=== PATIENT | male | born 1960 | race Caucasian/White ===

== ENCOUNTER 2017-06-12 15:34 | Emergency (ER) | payer OTHER ==
[2017-06-12] MEDS ORDERED: IPRATROPIUM/ALBUTEROL SULFATE 3 ML NEB NEB ONE (16:00)
[2017-06-12] MEDS ORDERED: NORMAL SALINE 10 ML SYRINGE FLUSH IVP PRN (16:05)
[2017-06-12 16:10] VITALS: RESP 16; TEMP 97.2
[2017-06-12 16:10] LABS: BASOPHILS # (AUTO) 0.04 10*3/UL; BASOPHILS % (AUTO) 0.7 % (0-1); EOSINOPHILS # (AUTO) 0.04 10*3/UL; EOSINOPHILS % (AUTO) 0.7 % (0-8); HEMOGLOBIN 17.2 g/dL (14.0-18.0); LYMPHOCYTES # (AUTO) 0.76 10*3/uL; MEAN CORPUSCULAR HEMOGLOBIN 35.8 PG (27-31); MEAN CORPUSCULAR HGB CONC 36.6 g/dL (33-37); MEAN CORPUSCULAR VOLUME 97.7 FL (80-90); MEAN PLATELET VOLUME 9.1 FL (7.4-12.2); MONOCYTES # (AUTO) 0.91 10*3/UL (0.3-0.8); NEUTROPHILS % (AUTO) 70.8 % (50-80); RED BLOOD COUNT 4.81 10^6/uL (4.70-6.10)
[2017-06-12 16:12] LABS: PLATELET MORPHOLOGY COMMENT NORMAL MORPHOLOGY (NORM); RBC MORPHOLOGY COMMENT NORMAL MORPHOLOGY (NORM); WBC MORPHOLOGY COMMENT NORMAL MORPHOLOGY (NORM)
[2017-06-12 16:20] LABS: BLOOD UREA NITROGEN 8 mg/dL (7-22); BUN/CREATININE RATIO 11.42 (6-20); CALCIUM 8.7 mg/dL (8.7-10.7); EST GLOMERULAR FILTRATION > 60 (>60 ml/min/1.73m(2)); SERUM ALBUMIN 3.8 g/dL (3.5-4.8)
--- NOTE | 2017-06-12 16:25 | EKG ---
[address] [address] Measurements Intervals [place] Rate: 82 P: 76 [place]: 171 QRS: 66 QRSD: 95 T: 46 QT: 397 QTc: 436 Interpretive Statements SINUS RHYTHM VOLTAGE CRITERIA FOR LVH No previous ECG available for comparison Electronically Signed On 06-13-17 08:48:38 MDT by Jimmie Moreno [email or web address]
--- NOTE | 2017-06-12 16:52 | DI ---
PA /LATERAL CHEST X-RAY, 06/12/2017 3:57 PM : Clinical History: Hypoxia. Wheezing. Previous Exam: None at this facility. There is no acute soft tissue or bony abnormality. Respiratory motion artifacts are present on both v iews. Heart size is normal. Lungs are clear. Mediastinal structures are normal. There are no pulmonar y nodules. Reading: Normal chest x-ray.
[2017-06-12] MEDS ORDERED: POTASSIUM CHLORIDE 20 MEQ TAB PO ONE (17:22)
--- NOTE | 2017-06-12 17:24 | PDOC ---
General Adult HPI - General Chief Complaint: General Medical Stated Complaint: NOT FEELING WELL Date Seen by Provider: 06/12/17 Time Seen by Provider: 15:50 - History of Present Illness Have you received a tetanus shot in the past 10 years?: Unknown - Patient Home Medications Home Medications: Home Medications Lisinopril/Hydrochlorothiazide [Lisinopril-Hctz 20-25 mg Tab] 1 tab PO DAILY Oxycodone HCl 20 mg PO Q4HR 06/12/17 Oxycodone HCl [Oxycontin] 60 mg PO BID 06/12/17 Potassium Chloride [K-Dur] 20 meq PO DAILY 06/12/17 - Patient Allergies Allergies/Adverse Reactions: Allergies Allergy/AdvReac Type Severity Reaction Status Date / Time No Known Allergies Allergy Unverified 06/12/17 15:45 Past Medical History - heen HEENT History: Denies History Cardiovascular History: Hypertension Respiratory History: Denies History Gastrointestinal History: Denies History Genitourinary History: Denies History Endocrine History: Denies History Musculoskeletal History: Arthritis, Joint Pain, Physical Limitation, Other ( please comment) Prosthesis or Implant: No Additional Musculoskeletal History: Chronic Lumbar Issues/Pain Neurological History: Denies History Blood Disorders: Denies History Psychiatric History: Denies History History of Sexually Transmitted Diseases: No Male Reproductive History: Denies History Cancer History: Denies History In Past Year Been Physically Harmed or Verbally Threatened: No History of MDRO: No History of Other Communicable Diseases: No Tobacco Use: Never Smoker Alcohol Use: Occasionally Type of alcohol normally used: Beer Substance Use Type: None Previous Surgical History: Yes Type / Date of Surgery: R HIP REPLACEMENT NOVEMBER 2016 Anesthesia Reactions: No Malignant Hyperthermia: No Family History of Malignant Hyperthermia: No Significant Family History: No pertinent family hx General Adult Progress - Results Reviewed by me Xrays/CTs/US Reviewed by me: Yes Radiology Findings: normal cxr Lab Results Reviewed: Yes Lab Results:: Laboratory Results 06/12/17 Range/Units 16:07 WBC 6.07 (4.8-10.8) 10^3/uL RBC 4.81 (4.70-6.10) 10^6/uL Hgb 17.2 (14.0-18.0) g/dL Hct 47.0 (42.0-52.0) % MCV 97.7 H (80-90) FL MCH 35.8 H (27-31) PG MCHC 36.6 (33-37) g/dL RDW Std Deviation 55.2 H (39-50) fL RDW Coeff of Jaqueline 15.6 H (11.5-14.5) % Plt Count 168 (140-350) 10*3/uL MPV 9.1 (7.4-12.2) FL Immature Gran % (Auto) 0.3 (0-5) % Neut % (Auto) 70.8 (50-80) % Lymph % (Auto) 12.5 (10-50) % Rogers % (Auto) 15.0 (5-15) % Eos % (Auto) 0.7 (0-8) % Baso % (Auto) 0.7 (0-1) % Immature Gran # (Auto) 0.02 10*3/UL Neut # (Auto) 4.30 10*3/UL Lymph # (Auto) 0.76 10*3/uL Rogers # (Auto) 0.91 H (0.3-0.8) 10*3/UL Eos # (Auto) 0.04 10*3/UL Baso # (Auto) 0.04 10*3/UL WBC Morphology Comment Normal morphology (NORM) Plt Morphology Comment Normal morphology (NORM) RBC Morph Comment Normal morphology (NORM) D-Dimer 0.43 (0.00-0.59) mg/L Sodium 135 (135-145) meq/L Potassium 2.9 L (3.8-5.2) meq/L Chloride 94 L (98-112) meq/L Carbon Dioxide 33 (23-33) meq/L Anion Gap 8 (5-20) BUN 8 (7-22) mg/dL Creatinine 0.7 (0.70-1.50) mg/dL Estimated GFR > 60 (>60 ml/min/1.73m(2)) BUN/Creatinine Ratio 11.42 (6-20) Glucose 107 (78-110) mg/dL Calculated Osmolality 277.0 (267-292) mOsm/kg Calcium 8.7 (8.7-10.7) mg/dL Total Bilirubin 0.9 (0.3-1.2) mg/dL AST 50 (21-57) IU/L ALT 57 (21-72) IU/L Alkaline Phosphatase 156 H (38-126) IU/L Troponin I 0.030 (< 0.040) ng/mL NT-Pro-B Natriuret Pep 210 H (0-125) PG/ML Total Protein 6.5 (6.1-8.0) g/dL Albumin 3.8 (3.5-4.8) g/dL Globulin 2.7 (2.50-4.10) g/dL Albumin/Globulin Ratio 1.40 (1.3-2.0) mg/g EKG Interpretation:: POSITIVE: Other (no ischemic changes) - Patient's Progress MDM / ED Course: Patient is strange episode where he started feeling very poorly and he couldn't really describe exactly what was going on. He denied any specific chest pain they had a little bit of epigastric discomfort that he classified as reflux. Ultimately his pressures outside of the hospital were high so this in combination with his other symptoms is brought to the emergency department for evaluation. In the ER he is been feeling better and better he was weaned off of oxygen and is satting greater than 91% on room air. He has had mostly benign labs with the exception of a potassium at 2.9 and was given 20 mEq of oral potassium. He normally takes potassium orally as an outpatient but hasn't taken it over last couple days. He has had no concerning rhythm during his time here in the emergency department he states that he feels back to his baseline. D-dimer is negative chest x-ray is normal. I've encouraged him to return with any increase in symptoms or any other problems. And follow-up with his primary care provider back home as soon as he can. Patient Care Time - Estimated PCT Patient Care Time (In Minutes): 40 Vital Signs - Recent Vital Signs Vital Signs: Vital Signs (Last 8 hours) Temp Pulse Pulse Resp BP BP Pulse Ox 06/12/17 15:48 97.2 F 90 16 162/93 89 06/12/17 15:45 97.2 F 90 16 162/93 94 - VS Reviewed Vital Signs Reviewed: Yes Discharge Clinical Impression: Hypokalemia, Cough, Hypoxia Discharge Disposition: Discharged to Home Patient Instructions Given at Discharge: Hypokalemia (ED), Hypoxia (ED) Follow Up With: NONE,NONE [Primary Care Provider] -
[2017-06-12 17:35] LABS: BILIRUBIN,URINE MODERATE (NEG); CLARITY,URINE CLEAR (CLEAR); COLOR,URINE YELLOW; GLUCOSE, URINE (UA) NEGATIVE (NEG); NITRATE,URINE NEGATIVE (NEG); OCCULT BLOOD,URINE Trace-intact (NEG); PROTEIN,URINE >300 mg/dl (NEG)
[2017-06-12 17:52] LABS: URINE SAMPLE TYPE VOIDED SPECIMEN; URINE SPECIFIC GRAVITY - MAN 1.027; WBC,URINE 0-2
== END 2017-06-12 18:31 | disposition home or self-care (01) ==
LOC: ER 15:34
DX: E87.6 Hypokalemia (principal); R05 Cough; R09.02 Hypoxemia; R10.13 Epigastric pain
CPT/HCPCS: 36000; 36415; 71020; 80053; 81001; 81003; 83880; 84484; 85025; 85379; 93005; 93010; 94640; 99283; 99284; J7620